=== PATIENT | female | born 1990 | race Caucasian/White ===

== ENCOUNTER → 2016-08-19 | Outpatient (CLI) | payer OTHER ==
[2016-08-19 15:40] LABS: Basophils % (A) 1 %; CH 30.5; CHCM 34.1; Eosinophils # (A) 0.2 k/uL (0-0.7); Eosinophils % (A) 4 %; HCT 39.2 % (34.0-46.0); HDW 2.46; HGB 13.3 gm/dL (11.4-16.0); Luc # (Auto) 0.08; Luc % (Auto) 2; Lymphocytes # (A) 1.6 k/uL (1.0-4.8); Lymphocytes % (A) 37 %; MCH 30.3 pg (25.0-35.0); MCHC 33.8 g/dL (31.0-37.0); MCV 89.7 fL (80.0-100.0); Monocytes # (A) 0.1 k/uL (0-1.0); Monocytes % (A) 3 %; Neutrophils # (A) 2.3 k/uL (1.3-7.7); Neutrophils % (A) 53 %; RBC 4.38 m/uL (3.80-5.40); RDW 11.9 % (11.5-15.5); WBC 4.4 k/uL (3.8-10.6); WBC (Perox) 4.49
== END | disposition home or self-care (01) ==
LOC: LABPAT 15:21
PROVIDERS: ATTEND Obstetrics & Gynecology
DX: Z01.812 Encounter for preprocedural laboratory examination (principal)
CPT/HCPCS: 85025

== ENCOUNTER 2016-08-20 06:33 | Day surgery (SDC) | payer OTHER ==
[2016-08-19 09:53] VITALS: BMI 23.6
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
[~2016-08-20 06:33] MED LIST: DEXAMETHASONE SOD PHOSPHATE 10 MG/ML 1 ML VIAL IV ONE; LACTATED RINGERS 1,000 ML IV SCH; MIDAZOLAM 2 MG/2 ML VIAL IV PRN; ONDANSETRON 4 MG/2 ML VIAL IVP ONE; Pre Op ABX Message 1 EACH MISC MISCELLANE ONE
[2016-08-20 06:51] VITALS: RESP 16
[2016-08-20] MEDS ORDERED: LIDOCAINE 1% 20 ML VIAL (10MG/ML) FOR IV START INTRADERMA ONE (07:00)
[2016-08-20] MEDS ORDERED: NEOSTIGMINE 1 MG/ML 10 ML VIAL ONE (07:29)
[2016-08-20] MEDS ORDERED: MIDAZOLAM 2 MG/2 ML VIAL ONE (07:29)
[2016-08-20] MEDS ORDERED: KETOROLAC 30 MG/ML 1 ML VIAL ONE (07:29)
[2016-08-20] MEDS ORDERED: GLYCOPYRROLATE 0.2 MG/ML 2 ML VIAL ONE (07:29)
[2016-08-20] MEDS ORDERED: ROCURONIUM BROMIDE 10 MG/ML 10 ML VIAL IV ONE (07:29)
[2016-08-20] MEDS ORDERED: fentaNYL (PF) 50 MCG/ML 2 ML AMP ONE (07:29)
[2016-08-20] MEDS ORDERED: LIDOCAINE 1% INJ 10MG/ML (20 ML MDV) ONE (07:29)
[2016-08-20] MEDS ORDERED: SUCCINYLCHOLINE CHLORIDE 100 MG/5 ML SYR IV ONE (07:29)
[2016-08-20] MEDS ORDERED: PROPOFOL 10 MG/ML 20 ML VIAL IV ONE (07:29)
[2016-08-20] MEDS ORDERED: LIDOCAINE 1%-EPI 1:100,000 20 ML VIAL SQ ONE (08:03)
[2016-08-20] MEDS ORDERED: BUPIVACAINE (PF) 0.25% 30 ML VIAL SQ ONE (08:03)
[2016-08-20] MEDS ORDERED: BUPIVACAINE (PF) 0.5% 30 ML VIAL SQ ONE (08:05)
[2016-08-20] MEDS ORDERED: IODINE/POTASS IOD (LUGOLS) BTL TOPICAL ONE (08:05)
[2016-08-20] MEDS ORDERED: ACETIC ACID 15 DROPS/ML DROPS MISCELLANE ONE (08:05)
[2016-08-20] MEDS ORDERED: FERRIC SUBSULFATE (MONSELS) JAR TOPICAL ONE (08:11)
--- NOTE | 2016-08-20 08:23 | P.OP ---
Date of Procedure: 08/20/16 Preoperative Diagnosis: 1. Family planning. 2. JAXON-2 of the cervix. Postoperative Diagnosis: Same Procedure(s) Performed: Laparoscopic bilateral tubal ligation via fulguration Colposcopy with loop electrocautery excision procedure Anesthesia: TI Surgeon: Hortencia Borden Estimated Blood Loss (ml): 5 Pathology: other (Ectocervix with 12 o'clock position marked with a suture.) Condition: stable Disposition: same day Indications for Procedure: This is a 25-year-old female 2 para 2 who presents for laparoscopic bilateral tubal ligation via fulguration and colposcopy with loop electrocautery excision procedure secondary to JAXON-2 on her colposcopy. She delivered her last child in December 2015 and she desires permanent sterilization. She is currently on oral contraceptives. Her last Pap smear was in January 2016 and showed high-grade prescription was intraepithelial lesion of the cervix. She underwent colposcopy in February 2016. Biopsies showed JAXON-1 and JAXON-2. She has consented to colposcopy with loop electrocautery excision procedure. Operative Findings: Upon colposcopy the cervix is noted to have some fine mosaicism along the 6:00 border. The transition zone is visualized completely. There is Lugol white areas along both the 6 and 12:00 borders. Normal uterus tubes and ovaries are noted. There is a fine adhesion from the left fallopian tube to the pelvic cul- de-sac. Appendix is visualized and appears normal. Gallbladder and liver edges appeared normal. Description of Procedure: The patient is taken to the operating room where she is placed in the dorsal lithotomy position. She is prepped and draped in the normal sterile fashion. Examination is performed under anesthesia. Uterus is found to be in a mid position. No adnexal masses were palpated. Next a coated bivalve speculum was placed into the patient's vagina. Suction was attached. Next colposcopy was performed using a colposcope and a blue light. The cervix was swabbed with 5% acetic acid solution. Some fine mosaicism was noted along the 6:00 border. Next the cervix was swabbed with Lugol solution and acetowhite and Lugol white areas were noted along the 6 and 12:00 border. Next the cervix was circumferentially injected with a 50-50 mixture of 1% lidocaine with epinephrine and half percent Marcaine mixture. Approximately 7 mL were used. Next a large loop was used with 35 W of cutting power to swipe from left to right along the ectocervix. The specimen was labeled at the 12 o'clock position with a stitch. The bed left behind was then cauterized with ball- tipped cautery. Excellent hemostasis was noted. Next a coated speculum was removed from the vagina. Next a bivalve speculum was placed in the patient's vagina. A single-tooth tenaculum was used to grasp the anterior lip of the cervix. The uterus was sounded to 8 cm. The kroner uterine manipulator was then inserted through the cervix and the balloon was inflated. The single-tooth tenaculum is removed speculum was removed gloves were changed and attention was turned to the abdomen. The infraumbilical fold was grasped in transverse fashion with 2 Allis clamps. A small transverse incision was made with a scalpel. A hemostat was used to carry the incision down to the underlying layer of fascia. A towel clip was placed above the umbilicus for retraction. A 10 mm disposable bladeless trocar was then inserted into the peritoneal cavity under direct visualization. Once inside, pneumoperitoneum was achieved with CO2 gas. The insert was removed and the camera was placed. Intraperitoneal placement was confirmed. No bleeding was noted. Next the patient was placed in Trendelenburg position. A small stab incision was made suprapubically and a 5 mm disposable bladeless trocar was inserted into the peritoneal cavity under direct visualization. Once inside pelvic contents were inspected. Next a bipolar Kleppinger instrument was placed through the inferior trocar and the midportion of each tube was brought away from other structures and completely fulgurated on approximate 2-3 cm segment of each tube. Excellent hemostasis was noted. A picture was taken. Pneumoperitoneum was released after the inferior trocar was removed under direct visualization. The upper trocar was then removed. The fascial incision was closed with 0 Vicryl suture in interrupted [id number] stitch. The skin incisions were then closed with 4- 0 Vicryl suture in a subcuticular fashion. Incision sites were injected with quarter percent Marcaine. Approximately 6 mL were used. Next the kroner uterine manipulator was removed. Minimal bleeding was noted. Next Monsel solution was applied to the cervix. Excellent hemostasis was noted. The speculum was removed from the vagina. All sponge and needle counts are correct. The patient is then taken to recovery room in stable condition.
[2016-08-20 08:33] VITALS: TEMP 97.3
[2016-08-20] MEDS: HYDROmorphone 1 MG/ML 1 ML SYRINGE IVP PRN ×2 (08:46→08:58)
[2016-08-20] MEDS ORDERED: LACTATED RINGERS 1,000 ML IV ONE (09:04)
[2016-08-20 10:37] VITALS: BP 101/64; PULSE 71
== END 2016-08-20 10:53 | disposition home or self-care (01) ==
LOC: OR 06:33
PROVIDERS: ATTEND Obstetrics & Gynecology
DX: Z30.2 Encounter for sterilization (principal); R87.612 Low grade squamous intraepithelial lesion on cytologic smear of cervix (LGSIL); N87.1 Moderate cervical dysplasia; Z87.891 Personal history of nicotine dependence; Z91.09 Other allergy status, other than to drugs and biological substances
CPT/HCPCS: 81025; 88342; 88307; 57460; 58670; J2250; J1100; J2710; J2405; J2001; J3010; J1885; J1170; J0330; J2704

== ENCOUNTER 2018-12-03 03:05 | Emergency (ER) | payer OTHER ==
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
[2018-12-03] MEDS ORDERED: metroNIDAZOLE 500 MG TAB PO STA (05:31)
[2018-12-03] MEDS ORDERED: cefTRIAXone 250 MG VIAL IM STA (05:31)
[2018-12-03] MEDS ORDERED: AZITHROMYCIN 500 MG TAB PO STA (05:31)
[2018-12-03 06:19] LABS: Bilirubin,Urine Negative (Negative); Blood,Urine Negative (Negative); Glucose,Urine (UA) Negative (Negative); Ketones,Urine Negative (Negative); Leukocyte Esterase,Urine Trace (Negative); Nitrite,Urine Negative (Negative); PH, Urine 5.5 (5.0-8.0); Protein,Urine 1+ (Negative)
[2018-12-03 06:30] LABS: Appearance,Urine Clear (Clear); Color,Urine Yellow; Mucus,Urine Many /hpf; RBC,Urine 1 /hpf (0-5); Specific Gravity,Urine 1.037 (1.001-1.035); Squamous Epithelial Cell,Urine 1 /hpf (0-4); WBC,Urine 6 /hpf (0-5)
[2018-12-03 06:53] VITALS: BP 100/78; PULSE 71; RESP 19; TEMP 98.1
[2018-12-04 12:18] LABS: N. gonorrhoeae,PCR Negative (Neg,Equiv); Neisseria Source Vagina
[2018-12-04 12:19] LABS: C. trachomatis,PCR Positive (Neg,Equiv); Chlamydia trachomatis Source Vagina
== END 2018-12-03 06:53 | disposition home or self-care (01) ==
LOC: EC 03:05
DX: R10.9 Unspecified abdominal pain (principal); A64 Unspecified sexually transmitted disease; F17.200 Nicotine dependence, unspecified, uncomplicated; Z91.048 Other nonmedicinal substance allergy status; Z98.51 Tubal ligation status
CPT/HCPCS: 81001; 81025; 87808; 87491; 87591; 87070; 87205; 99284; 96372; J0696

== ENCOUNTER 2019-03-24 20:39 | Emergency (ER) | payer OTHER ==
[2019-03-24] MEDS ORDERED: ACETAMINOPHEN TAB 500 MG TAB PO STA (20:57)
[2019-03-24 21:10] LABS: Appearance,Urine Clear (Clear); Bilirubin,Urine Negative (Negative); Blood,Urine Negative (Negative); Color,Urine Yellow; Glucose,Urine (UA) Negative (Negative); Ketones,Urine Negative (Negative); Leukocyte Esterase,Urine Small (Negative); Mucus,Urine Rare /hpf; Nitrite,Urine Negative (Negative); Protein,Urine Trace (Negative); RBC,Urine 1 /hpf (0-5); Specific Gravity,Urine 1.028 (1.001-1.035); Squamous Epithelial Cell,Urine 1 /hpf (0-4); Urobilinogen,Urine <2.0 mg/dL (<2.0); WBC,Urine 4 /hpf (0-5)
[2019-03-24] MEDS ORDERED: AMOXICILLIN 500 MG CAP PO STA (21:38)
[2019-03-24] MEDS ORDERED: AZITHROMYCIN 500 MG TAB PO STA (21:45)
[2019-03-24] MEDS ORDERED: cefTRIAXone 250 MG VIAL IM STA (21:45)
[2019-03-24 21:59] VITALS: TEMP 101.8
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
[2019-03-24 22:08] VITALS: BP 110/66; PULSE 97; RESP 16
[2019-03-26 13:41] LABS: C. trachomatis,PCR Negative (Neg,Equiv); Chlamydia trachomatis Source Urine
[2019-03-26 13:42] LABS: N. gonorrhoeae,PCR Negative (Neg,Equiv); Neisseria Source Urine
== END 2019-03-24 22:08 | disposition home or self-care (01) ==
LOC: EC 20:39
DX: J02.0 Streptococcal pharyngitis (principal); N76.0 Acute vaginitis; B96.89 Other specified bacterial agents as the cause of diseases classified elsewhere; N39.0 Urinary tract infection, site not specified; F17.200 Nicotine dependence, unspecified, uncomplicated; Z91.048 Other nonmedicinal substance allergy status; Z53.20 Procedure and treatment not carried out because of patient's decision for unspecified reasons
CPT/HCPCS: 81001; 81025; 87491; 87591; 87081; 87430; 99283; 96372; J0696

== ENCOUNTER 2020-03-12 15:42 | Emergency (ER) | payer OTHER ==
[2020-03-12 16:05] VITALS: TEMP 98.2
[2020-03-12] MEDS ORDERED: LIDOCAINE 1%-EPI 1:100,000 20 ML VIAL SQ STA (16:19)
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
[2020-03-12 17:24] VITALS: BP 99/74; PULSE 82; RESP 17
== END 2020-03-12 17:26 | disposition home or self-care (01) ==
LOC: EC 15:42
DX: L03.116 Cellulitis of left lower limb (principal); F17.200 Nicotine dependence, unspecified, uncomplicated; Z91.048 Other nonmedicinal substance allergy status
CPT/HCPCS: 10060; 99283

== ENCOUNTER 2022-11-21 19:29 | Emergency (ER) | payer OTHER ==
[2022-11-21 19:44] VITALS: BP 120/77; TEMP 98.3
[2022-11-21] MEDS ORDERED: KETOROLAC 15 MG/ML 1 ML VIAL IVP STA (20:04)
[2022-11-21] MEDS ORDERED: SODIUM CHLORIDE 0.9% 1,000 ML IV STA (20:04)
[2022-11-21] MEDS ORDERED: ONDANSETRON 4 MG/2 ML VIAL IVP STA (20:04)
[2022-11-21 20:33] LABS: Basophils % (A) 0 %; Eosinophils # (A) 0.3 k/uL (0-0.7); Eosinophils % (A) 4 %; HCT 42.8 % (34.0-46.0); HGB 14.2 gm/dL (11.4-16.0); Lymphocytes # (A) 1.9 k/uL (1.0-4.8); Lymphocytes % (A) 29 %; MCH 30.4 pg (25.0-35.0); MCHC 33.3 g/dL (31.0-37.0); MCV 91.3 fL (80.0-100.0); Mean Platelet Volume 8.5; Monocytes # (A) 0.3 k/uL (0-1.0); Monocytes % (A) 4 %; Neutrophils # (A) 4.1 k/uL (1.3-7.7); Neutrophils % (A) 61 %; Platelet Count 197 k/uL (150-450); RBC 4.69 m/uL (3.80-5.40); RDW 11.8 % (11.5-15.5); WBC 6.7 k/uL (3.8-10.6)
[2022-11-21 20:49] LABS: ALT 25 U/L (4-34); AST 26 U/L (14-36); African American GFR (CKD) >90 (>60 ml/min/1.73 sqM); Albumin 4.4 g/dL (3.5-5.0); Alkaline Phosphatase 53 U/L (38-126); Anion Gap 9 mmol/L; Blood Urea Nitrogen 17 mg/dL (7-17); Carbon Dioxide 25 mmol/L (22-30); Chloride 104 mmol/L (98-107); Glucose 84 mg/dL (74-99); Lipase 71 U/L (23-300); Non-African American GFR(CKD) >90 (>60 ml/min/1.73 sqM); Potassium 4.4 mmol/L (3.5-5.1); Sodium 138 mmol/L (137-145); Total Bilirubin 0.5 mg/dL (0.2-1.3); Total Protein 7.1 g/dL (6.3-8.2)
[2022-11-21 21:18] LABS: Appearance,Urine Clear (Clear); Bacteria,Urine Rare /hpf; Bilirubin,Urine Negative (Negative); Blood,Urine Negative (Negative); Color,Urine Yellow; Glucose,Urine (UA) Negative (Negative); Ketones,Urine 1+ (Negative); Leukocyte Esterase,Urine Trace (Negative); Mucus,Urine Few /hpf; Nitrite,Urine Negative (Negative); Protein,Urine Trace (Negative); RBC,Urine 1 /hpf (0-5); Specific Gravity,Urine 1.025 (1.001-1.035); Squamous Epithelial Cell,Urine <1 /hpf (0-4); WBC,Urine 7 /hpf (0-5)
--- NOTE | 2022-11-21 21:31 | US ---
EXAMINATION TYPE: US transvaginal DATE OF EXAM: 11/21/2022 COMPARISON: Pelvic ultrasound 11/18/2014 CLINICAL INDICATION: Female, 32 years old with history of pelvic pain; pain. History of Tubal Ligation, negative serum bHCG. TECHNIQUE: Transvaginal (TV EXAM MEASUREMENTS: Uterus: 8.0 x 4.2 x 5.0 cm Endometrial Stripe: 1.0 cm Right Ovary: 3.6 x 2.6 x 2.4 cm 1. Uterus: Anteverted within normal limits 2. Endometrium: Measuring 10 mm in width, which is normal. 3. Right Ovary: Thick-walled cystic lesion within the right ovary peripheral vascularity, suspected corpus luteum cyst. 4. Left Ovary: Obscured by overlying bowel gas Spectral, color and waveform doppler imaging shows good arterial and venous flow within the right o vary; there is no evidence for ovarian torsion. 5. Bilateral Adnexa: Within normal limits. 6. Posterior cul-de-sac: Within normal limits. IMPRESSION: No sonographic evidence for acute intrapelvic abnormality.
[2022-11-21] MEDS ORDERED: cefTRIAXone IN SWFI 1,000 MG/10 ML SYRINGE IVP STA (22:29)
[2022-11-21] MEDS ORDERED: DOXYCYCLINE 100 MG CAP PO STA (22:30)
[2022-11-21] MEDS ORDERED: metroNIDAZOLE 500 MG TAB PO STA (22:31)
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
[2022-11-21 22:56] VITALS: PULSE 87; RESP 18
[2022-11-23 13:49] LABS: C. trachomatis,PCR Negative (Neg,Equiv); Chlamydia trachomatis Source Urine; N. gonorrhoeae,PCR Negative (Neg,Equiv); Neisseria Source Urine
== END 2022-11-21 22:56 | disposition home or self-care (01) ==
LOC: EC 19:29
DX: N89.8 Other specified noninflammatory disorders of vagina (principal); R10.2 Pelvic and perineal pain; F17.200 Nicotine dependence, unspecified, uncomplicated; F12.90 Cannabis use, unspecified, uncomplicated; Z91.048 Other nonmedicinal substance allergy status
CPT/HCPCS: 36415; 80053; 83605; 83690; 85025; 81001; 81025; 87491; 87591; 93975; 76830; 99284; 96374; 96375 ×2; 96361 ×2; J2405; J0696; J1885